=== PATIENT | female | born 1980 | race Asian ===

== ENCOUNTER → 2020-03-07 | Day surgery (SDC) | payer OTHER ==
[~2020-03-07] MED LIST: FENTANYL CITRATE/PF 100MCG/2 ML INJ ONE; LIDOCAINE HCL 2% LOCAL INJ 5 ML SDV VIAL INJ ONE; MIDAZOLAM HCL 2 MG/2 ML VIAL ONE; MULTIVITAMINS1 EAC7 PO; ONDANSETRON PO; PANTOPRAZOLE 40 MG 10ML VIAL ONE; PANTOPRAZOLE SO40 MG PO; PROPOFOL IV EMULSION 10 MG/ML 20 ML VIAL ONE
--- OUTSIDE RECORDS SUMMARY | 2020-03-07 06:09 | XMS REPORT ---
Author Author [facility] Organization [facility] Address Unknown Phone Unavailable Care Team Providers [employer] Department Head Name Role Phone Unavailable Unavailable Payers Payer Name Policy Type Policy Number Effective Date Expiration D ate Problems This patient has no known problems. Allergies, Adverse Reactions, Alerts Allergy Name Allergy Type Status Severity Reaction(s) Onset Date Inacti ve Date Treating Clinician Comments No Known Allergies DA Active U 2019-12-23 00:00:00 Medications This patient has no known medications. Results Test Description Test Time Test Comments Text Results Atomic Results Result Comments TROPONIN-I 2019-12-23 09:07:00 TROPONIN-I (test code = TROPI) <0.015 ng/mL 0-0.045 HEPATIC FUNCTION [id number] 06:23:00* Test Item Value Reference Range Comments TOTAL PROTEIN (test code = PROT) 7.6 gram/dL 6.4-8.2 ALBUMIN (test code = ALB) 3.7 g/dL 3.4-5.0 GLOBULIN (test code = GLOB) 3.9 gram/dL 2.7-4.2 ALBUMIN/GLOBULIN RATIO (test code = A/G) 1.0 0.75-1. 50 BILIRUBIN TOTAL (test code = BILT) 0.30 mg/dL 0.0-1.0 BILIRUBIN DIRECT (test code = BILD) 0.17 mg/dL 0.0-0.20 SGOT/AST (test code = AST) 75 IUnit/L 15-37 SGPT/ALT (test code = ALT) 52 IUnit/L 12-78 ALKALINE PHOSPHATASE TOTAL (test code = ALKP) 90 IUnit/L 45 -117 Note change in reference range due to change in reagent. [id number] 06:23:00* Test Item Value Reference Range Comments LIPASE (test code = LIP) 148 U/L 73.0-393.0 HCG SERUM [id number] 06:23:00* Test Item Value Reference Range Comments HCG SERUM QUAL (test code = HCGQL) NEGATIVE NEGATIVE This HCGQL test is NOT applicable for MALE patients.Check with nurse about probable order error.If Tumor Marker Test needed, nurse should order test "HCGTU"(Test #550.39006) BASIC METABOLIC [id number] 06:23:00* Test Item Value Reference Range Comments SODIUM (test code = NA) 142 mmol/L 136-145 POTASSIUM (test code = K) 3.3 mmol/L 3.5-5.1 CHLORIDE (test code = CL) 110.0 mmol/L 98-107 CARBON DIOXIDE (test code = CO2) 25.0 mmol/L 21-32 ANION GAP (test code = GAP) 10.3 10-20 GLUCOSE (test code = GLU) 128 mg/dL 74-106 BLOOD UREA NITROGEN (test code = BUN) 19 mg/dL 7-18 GLOMERULAR FILTRATION RATE (test code = GFR) > 60 mL/min >=6 0 Estimated GFR by using Modified MDRD formula.Chronic kidney disease is defined as either kidney damageor GFR <60 mL/min/1.73 m2 for >3 months. CREATININE (test code = CREAT) 0.90 mg/dL 0.55-1.02 * *Note change in reference range due to change in reagent. BUN/CREATININE RATIO (test code = BUN/CREA) 21.1 10-2 0 CALCIUM (test code = CA) 9.1 mg/dL 8.5-10.1 [id number] 06:23:00* Test Item Value Reference Range Comments TROPONIN-I (test code = TROPI) <0.015 ng/mL 0-0.045 HEPATIC FUNCTION [id number] 06:18:00* Test Item Value Reference Range Comments TOTAL PROTEIN (test code = PROT) gram/dL 6.4-8.2 ALBUMIN (test code = ALB) g/dL 3.4-5.0 GLOBULIN (test code = GLOB) gram/dL 2.7-4.2 ALBUMIN/GLOBULIN RATIO (test code = A/G) 0.75-1. 50 BILIRUBIN TOTAL (test code = BILT) mg/dL 0.0-1.0 BILIRUBIN DIRECT (test code = BILD) mg/dL 0.0-0.20 SGOT/AST (test code = AST) IUnit/L 15-37 SGPT/ALT (test code = ALT) IUnit/L 12-78 ALKALINE PHOSPHATASE TOTAL (test code = ALKP) IUnit/L 45 -117 [id number] 06:18:00* Test Item Value Reference Range Comments LIPASE (test code = LIP) U/L 73.0-393.0 HCG SERUM [id number] 06:18:00* Test Item Value Reference Range Comments HCG SERUM QUAL (test code = HCGQL) NEGATIVE NEGATIVE This HCGQL test is NOT applicable for MALE patients.Check with nurse about probable order error.If Tumor Marker Test needed, nurse should order test "HCGTU"(Test #550.38544) BASIC METABOLIC [id number] 06:17:00* Test Item Value Reference Range Comments SODIUM (test code = NA) 142 mmol/L 136-145 POTASSIUM (test code = K) 3.3 mmol/L 3.5-5.1 CHLORIDE (test code = CL) 110.0 mmol/L 98-107 CARBON DIOXIDE (test code = CO2) mmol/L 21-32 ANION GAP (test code = GAP) 10-20 GLUCOSE (test code = GLU) mg/dL 74-106 BLOOD UREA NITROGEN (test code = BUN) mg/dL 7-18 GLOMERULAR FILTRATION RATE (test code = GFR) mL/min >=6 0 CREATININE (test code = CREAT) mg/dL 0.55-1.02 BUN/CREATININE RATIO (test code = BUN/CREA) 10-2 0 CALCIUM (test code = CA) 9.1 mg/dL 8.5-10.1 [id number] 06:17:00* Test Item Value Reference Range Comments TROPONIN-I (test code = TROPI) ng/mL 0-0.045 CBC W/O [id number] 06:13:00* Test Item Value Reference Range Comments WHITE BLOOD CELL (test code = WBC) K/mm3 4.5-12.5 RED BLOOD CELL (test code = RBC) mill/mm3 3.7-5.2 HEMOGLOBIN (test code = HGB) 13.3 gram/dL 11.5-15.5 HEMATOCRIT (test code = HCT) 38.6 % 36.0-46.0 MEAN CELL VOLUME (test code = MCV) fL 80-98 MEAN CELL HGB (test code = MCH) picogram 27.0-33.0 MEAN CELL HGB CONCETRATION (test code = MCHC) gram/dL 33 .0-36.0 RED CELL DISTRIBUTION WIDTH (test code = RDW) % 11 .6-16.2 PLATELET COUNT (test code = PLT) K/mm3 150-450 MEAN PLATELET VOLUME (test code = MPV) fL 6.7-11.0 CBC W/O [id number] 06:13:00* Test Item Value Reference Range Comments WHITE BLOOD CELL (test code = WBC) 12.4 K/mm3 4.5-12.5 RED BLOOD CELL (test code = RBC) 4.54 mill/mm3 3.7-5.2 HEMOGLOBIN (test code = HGB) 13.3 gram/dL 11.5-15.5 HEMATOCRIT (test code = HCT) 38.6 % 36.0-46.0 MEAN CELL VOLUME (test code = MCV) 85.0 fL 80-98 MEAN CELL HGB (test code = MCH) 29.3 picogram 27.0-33.0 MEAN CELL HGB CONCETRATION (test code = MCHC) 34.5 gram/dL 33 .0-36.0 RED CELL DISTRIBUTION WIDTH (test code = RDW) 13.2 % 11 .6-16.2 PLATELET COUNT (test code = PLT) 251 K/mm3 150-450 MEAN PLATELET VOLUME (test code = MPV) 12.7 fL 6.7-11.0 - XR CHEST 1 [id number] 05:51:00 FAX: Sabina Pennington DO [place]: B St: REG Name: JUSTINA MARTINEZ [facility] : [birth year] Age/S: 39/F [address] Unit #: [id number] Loc: [place] [address] Phys: Sabina Pennington DO Acct: [id number] Dis Date: Status: REG ER PHONE #: [phone] Exam Date: 12/23/2019535 FAX #: [phone] Reason: CHEST PAIN EXAMS: CPT CODE: [id number] XR CHEST 1 V [id number] AFTER HOURS SERVICE ON: 12/23/2019 5:51 AM AP Portable Chest Location Code M12 HISTORY: CHEST PAIN FINDINGS: There are no in filtrates. There are no pleural effusions. There is no pneumothorax. Cardi ac silhouette and mediastinum appear within normal limits. IMPRESSION: No active pulmonary findings. at 0530 Reported and signed by: Debra Carrasquillo M.D. CC: Sabina Pennington DO Technologist: Kilo Hannah RT(R); CARMEN ORTIZ RT(R) Trnmtrd Date/Time/By: 12/23/2019 (0591) : By: [email or web address] Orig Print D/T: S: 12/23/2019 (4400) PAGE 1 Signed Report
[2020-03-07 08:25] VITALS: BP 122/71
--- NOTE | 2020-03-07 13:18 | Operative Report ---
DATE OF PROCEDURE: 03/07/2020 SURGEON: Willie Yeager MD PROCEDURE: EGD with polypectomy and biopsies. INDICATION FOR PROCEDURE: Upper abdominal pain, heartburn, and nausea. MEDICATIONS: The patient was done under MAC, please see anesthesiologist's note. PROCEDURE IN DETAIL: With the patient in the left lateral decubitus position, a flexible fiberoptic Olympus gastroscope was introduced into the esophagus under direct visualization without any difficulty. There was some patchy erythema noted in distal esophagus. The scope was then advanced with ease into the stomach. Mucosa overlying the antrum and the body revealed some patchy erythema and low-grade to moderate edema, and biopsies were obtained and sent to stain for H. pylori. Some minute hyperplastic-appearing polyps were noted in the body of the stomach and some were partially excised with the cold biopsy forceps. Pylorus was of normal contour and shape, was intubated with ease and the scope was advanced all the way to the second portion of the duodenum. The scope was then withdrawn slowly, mucosa overlying the proximal second portion and duodenal bulb grossly appeared to be within normal limits. Biopsies were obtained and sent to rule out sprue. The scope was then withdrawn back into the stomach and retroflexed, mucosa overlying the fundus and the cardia appeared to be within normal limits. The scope was then straightened out, it was subsequently withdrawn, and the patient tolerated the procedure well. IMPRESSION: 1. Distal esophagitis, mild. 2. Gastritis, biopsied, biopsies sent to stain for Helicobacter pylori. 3. Gastric polyps, minute, hyperplastic-appearing, body, some partially excised with the cold biopsy forceps. 4. Rule out sprue. PLAN: Follow up histology. Continue Protonix 40 mg one p.o. q.a.m. before meals. Willie Yeager MD [facility] /[id number]
== END | disposition home or self-care (01) ==
LOC: OR 06:03
PROVIDERS: ATTEND Internal Medicine Gastroenterology
DX: K29.50 Unspecified chronic gastritis without bleeding (principal); K31.7 Polyp of stomach and duodenum; K20.9 Esophagitis, unspecified; K21.9 Gastro-esophageal reflux disease without esophagitis; Z01.812 Encounter for preprocedural laboratory examination; Z11.59 Encounter for screening for other viral diseases
CPT/HCPCS: 43239; 81025; 87635; C9113; J2001; J2250; J2704; J3010